=== PATIENT | female | born 1940 | race Caucasian/White ===

== ENCOUNTER → 2016-07-10 | Day surgery (SDC) | payer MEDICARE, OTHER ==
[2016-07-10 07:37] LABS: HCT 40.4 % (37.0-47.0); MCH 27.1 pg (25.0-31.0); MCHC 32.2 g/dL (32.0-36.0); MCV 84.3 fL (78.0-100.0); MPV 10.2 fL (6.0-9.5); RBC 4.79 M/uL (4.20-5.40); RDW 15.9 % (11.5-14.0); WBC 8.6 K/uL (4.0-10.5)
[2016-07-10 07:50] LABS: ALBUMIN 4.8 g/dL (3.4-4.8); BILIRUBIN - TOTAL 0.5 mg/dL (0.1-1.0); GLOBULIN (CALCULATION) 3.1 g/dL (2.2-4.2); POTASSIUM 4.2 mmol/L (3.5-5.1); TOTAL PROTEIN 7.9 g/dL (6.4-8.3)
== END | disposition home or self-care (01) ==
LOC: FAS 07:15
PROVIDERS: Surgery
DX: Z12.11 Encounter for screening for malignant neoplasm of colon (principal); K57.30 Diverticulosis of large intestine without perforation or abscess without bleeding; E11.9 Type 2 diabetes mellitus without complications; E03.9 Hypothyroidism, unspecified; I11.0 Hypertensive heart disease with heart failure; I50.9 Heart failure, unspecified; Z79.899 Other long term (current) drug therapy; Z98.890 Other specified postprocedural states; M19.90 Unspecified osteoarthritis, unspecified site; E78.00 Pure hypercholesterolemia, unspecified; K58.9 Irritable bowel syndrome, unspecified; Z90.710 Acquired absence of both cervix and uterus; Z98.51 Tubal ligation status
CPT/HCPCS: 36415; 80053; J2704

== ENCOUNTER → 2021-04-21 | Day surgery (SDC) | payer MEDICARE, OTHER ==
[~2021-04-21] VITALS: Ht 157.5 cm; Wt 56.0 kg
[~2021-04-21] MED LIST: CARVEDILOL12.5 MG PO; COUMADIN1 MG PO; COUMADIN3 MG PO; GABAPENTIN100 MG PO; HCTZ12.5 MG PO; LEVOTHYROXINE112 MCG PO; LISINOPRIL 2.52.5 MG PO; METFORMIN HCL500 M3 PO; NORCO 5/3251 EACH PO; ROPINIROLE HCL3 MG PO; SERTRALINE HCL100 MG PO; [UNRECOGNIZED DRUG - OTHER] IM/IV/SC
[2021-04-21 07:54] LABS: INR 1.28 (0.9-1.2); PROTHROMBIN TIME 15.3 SECONDS (11.8-13.4); PTT 28.3 SECONDS (24.4-34.7)
== END | disposition home or self-care (01) ==
LOC: FAS 06:58
PROVIDERS: Student in an Organized Health Care Education/Training Program
DX: D50.9 Iron deficiency anemia, unspecified (principal); K52.9 Noninfective gastroenteritis and colitis, unspecified; R10.31 Right lower quadrant pain; K63.9 Disease of intestine, unspecified; K62.1 Rectal polyp; K64.4 Residual hemorrhoidal skin tags; I11.0 Hypertensive heart disease with heart failure; I50.9 Heart failure, unspecified; I48.91 Unspecified atrial fibrillation; E03.9 Hypothyroidism, unspecified; M19.90 Unspecified osteoarthritis, unspecified site; E78.00 Pure hypercholesterolemia, unspecified; E11.36 Type 2 diabetes mellitus with diabetic cataract; H26.9 Unspecified cataract; Z85.038 Personal history of other malignant neoplasm of large intestine; Z79.82 Long term (current) use of aspirin; Z88.5 Allergy status to narcotic agent; Z88.9 Allergy status to unspecified drugs, medicaments and biological substances; Z95.2 Presence of prosthetic heart valve; Z95.0 Presence of cardiac pacemaker; Z90.710 Acquired absence of both cervix and uterus; Z79.01 Long term (current) use of anticoagulants
CPT/HCPCS: 36415; 85610; 85730; J2704; J7120

== ENCOUNTER 2022-01-12 09:44 | Emergency (ER) | payer MEDICARE, OTHER ==
[~2022-01-12 09:44] MED LIST changes: +ASPIRIN EC81 MG PO; +AZELASTINE205.5 MCG/; +BIOTIN1 M1 PO; +COLESTID 1GM TAB1 GM PO; -COUMADIN1 MG PO; -COUMADIN3 MG PO; +COZAAR50 MG PO; +FLONASE ALLER15.8 ML; +FOLIC ACID1 MG PO; +ISOSORBIDE MONO30 MG PO; +JANTOVEN4 MG PO; +JANTOVEN5 MG PO; +K-TAB ER20 MEQ PO; +KEFLEX250 MG PO; +LASIX20 MG PO; +MAG-OXIDE 400M400 MG PO; +MOBIC7.5 MG PO; +NEURONTIN100 M1 PO; +VITAMIN B-121000 MC1 PO; +VITAMIN D310 MC4 PO; +VITAMIN E100 UNI2 PO; +ZINC10 MG PO
[2022-01-16] MEDS ORDERED: 8 HOUR650 MG PO (03:14)
[2022-01-16] MEDS ORDERED: MELATONIN5 M2 PO (03:14)
[2022-01-16] MEDS ORDERED: VOLTAREN ARTHRI20 GM TD (03:15)
[2022-01-16] MEDS ORDERED: REQUIP1 MG PO (03:44)
== END 2022-01-12 11:19 | disposition home or self-care (01) ==
LOC: FER 09:44
DX: S41.111A Laceration without foreign body of right upper arm, initial encounter (principal); R79.1 Abnormal coagulation profile; R58 Hemorrhage, not elsewhere classified; I25.10 Atherosclerotic heart disease of native coronary artery without angina pectoris; I10 Essential (primary) hypertension; E11.9 Type 2 diabetes mellitus without complications; Z88.5 Allergy status to narcotic agent; W19.XXXA Unspecified fall, initial encounter; Y92.009 Unspecified place in unspecified non-institutional (private) residence as the place of occurrence of the external cause
CPT/HCPCS: 99283

== ENCOUNTER 2022-02-08 19:07 | Emergency (ER) | payer MEDICARE, OTHER ==
[~2022-02-08 19:07] MED LIST changes: +8 HOUR650 MG PO; +CARAFATE1 GM PO; +LEVAQUIN500 MG PO; +MELATONIN5 M2 PO; +PROTONIX 40MG T40 MG PO; +REQUIP1 MG PO; +VOLTAREN ARTHRI20 GM TD
[2022-02-08 20:16] LABS: BASOPHIL 0.4 % (0-2); EOSINOPHIL 3.4 % (0-7); HCT 26.5 % (37.0-47.0); HGB 8.3 g/dl (12.5-16.0); LYMPHOCYTE 6.3 % (15-48); MCH 25.5 pg (25.0-31.0); MCHC 31.3 g/dL (32.0-36.0); MCV 81.3 fL (78.0-100.0); MONOCYTE 4.9 % (0-12); MPV 9.3 fL (6.0-9.5); NEUTROPHIL 83.9 % (41-80); NRBC 0; PLT 378 K/uL (150-400); RBC 3.26 M/uL (4.20-5.40); RDW 17.2 % (11.5-14.0); WBC 17.8 K/uL (4.0-10.5)
[2022-02-08 20:35] LABS: INR 4.06 (0.9-1.2); PROTHROMBIN TIME 37.9 SECONDS (11.9-13.9)
[2022-02-08 20:41] LABS: BILIRUBIN NEGATIVE (NEGATIVE); BLOOD 3+ Ery/uL (NEGATIVE); GLUCOSE (U) NORMAL (NORMAL); LEUKOCYTES TRACE Leu/uL (NEGATIVE); NITRITE NEGATIVE (NEGATIVE); PROTEIN 2+ mg/dL (NEGATIVE); UROBILINOGEN 0.2 mg/dL (0.2-1.0)
[2022-02-08 20:41] LABS: ALBUMIN 1.9 g/dL (3.4-5.0); BILIRUBIN - TOTAL 0.2 mg/dL (0.2-1.0); BUN/CREAT RATIO (CALC) 15.1 RATIO; CREATININE 4.04 mg/dL (0.51-0.95); GLOBULIN (CALCULATION) 4.8 g/dL; TOTAL PROTEIN 6.7 g/dL (6.4-8.2)
[2022-02-08 20:42] LABS: POTASSIUM 6.1 mmol/L (3.5-5.1)
[2022-02-08 20:48] LABS: CLARITY CLOUDY (CLEAR); COLOR BROWN (YELLOW)
[2022-02-08 20:49] LABS: BACTERIA TRACE; URINARY RBC TNTC
[2022-02-08 20:59] LABS: PTT 74.2 SECONDS (24.9-34.6)
[2022-02-08 21:16] LABS: LACTIC ACID 1.2 mmol/L (0.4-1.9)
[2022-02-08 21:18] LABS: FT4 (FREE T4) 0.9 ng/dL (0.76-1.46)
[2022-02-08 21:44] LABS: CORONAVIRUS 2019 SARS-COV-2 NEGATIVE (NEGATIVE); INFLUENZA A NAA NEGATIVE (NEGATIVE)
[2022-02-08 23:17] LABS: BUN/CREAT RATIO (CALC) 15.3 RATIO; CREATININE 3.85 mg/dL (0.51-0.95)
[2022-02-08 23:22] LABS: POTASSIUM 5.9 mmol/L (3.5-5.1)
== END 2022-02-09 01:20 | disposition other institution (70) ==
LOC: FER 19:07
PROVIDERS: Internal Medicine
DX: I13.0 Hypertensive heart and chronic kidney disease with heart failure and stage 1 through stage 4 chronic kidney disease, or unspecified chronic kidney disease (principal); I50.9 Heart failure, unspecified; N18.30 Chronic kidney disease, stage 3 unspecified; N17.9 Acute kidney failure, unspecified; R50.9 Fever, unspecified; E03.9 Hypothyroidism, unspecified; E87.5 Hyperkalemia; E87.1 Hypo-osmolality and hyponatremia; K80.80 Other cholelithiasis without obstruction; Z88.6 Allergy status to analgesic agent; Z79.899 Other long term (current) drug therapy; Z79.01 Long term (current) use of anticoagulants; Z20.822 Contact with and (suspected) exposure to COVID-19
CPT/HCPCS: 36415; 71250; 80048; 80053; 81001; 83605; 83690; 83880; 84145; 84439; 84443; 84484; 85025; 85610; 85730; 87040; 87088; 93005; J0610; J0692; J1170; J7030; U0002